=== PATIENT | female | born 1985 | race Caucasian/White ===

== ENCOUNTER 2019-10-27 11:08 | Emergency (ER) | payer OTHER ==
[2019-10-27 11:13] VITALS: BP 105/61; PULSE 58; TEMP 97; BMI 25.6
[2019-10-27] MEDS ORDERED: SODIUM CHLORIDE 0.9% 500 ML INFUS.BAG IV ONE (11:49)
[2019-10-27] MEDS ORDERED: METOCLOPRAMIDE HCL INJECTION 10 MG/2 ML VIAL IVPUSH ONE (11:49)
[2019-10-27] MEDS ORDERED: METOCLOPRAMIDE HCL INJECTION 10 MG/2 ML VIAL ONE (11:59)
[2019-10-27] MEDS ORDERED: KETOROLAC TROMETHAMINE 30 MG/1 ML VIAL IVPUSH ONE (12:34)
[2019-10-27] MEDS ORDERED: KETOROLAC TROMETHAMINE 30 MG/1 ML VIAL ONE (12:38)
--- NOTE | 2019-10-27 12:39 | PDOC ---
History of Present Illness - General Chief Complaint: Headache Stated Complaint: HEADACHE Time Seen by Provider: 10/27/19 11:27 History Source: Patient Exam Limitations: No Limitations - History of Present Illness Initial Comments: 10/27/19 12:34 34-year-old Georgian-speaking female history of migraine headaches complains of constant frontal headache radiating to left ear x 4 days with nausea, left lateral neck pain and general weakness. Denies trauma, fever, chills, vomiting, diarrhea, chest pain, shortness of breath, abdominal pain, urinary complaints, known sick contacts, recent travel, rash or any other symptoms. Patient took acetaminophen 1 g at approximately 7 AM this morning with no improvement. Reports normal head CT 2 years ago. Does not take anticoagulants. ROS: as above PE: GENERAL: well-appearing, NAD HEAD: NCAT EYES: pupils equal, round and reactive to light, sclera anicteric, conjunctiva clear ENT: Normal bilateral ear canals and TMs, pharynx: no erythema, no exudate, uvula midline NECK: supple, no lymphadenopathy, left lateral neck tenderness to palpation CHEST: nontender RESP: clear, no w/r/r CARDIO: rrr, no m/g/r ABD: +BS, soft, nontender, non distended BACK: no midline spinal ttp, no CVAT EXTREMITIES: Normal range of motion, no edema NEUROLOGICAL: Normal speech, normal gait SKIN: Warm, Dry 10/27/19 12:38 Is this a multiple visit Asthma Patient?: No Past History - Medical History Allergies/Adverse Reactions: Allergies Allergy/AdvReac Type Severity Reaction Status Date / Time No Known Allergies Allergy Verified 10/27/19 11:13 COPD: No - Psycho-Social/Smoking History Smoking History: Never smoked - Substance Abuse Hx (Audit-C & DAST Scrn) How often the patient has a drink containing alcohol: Never Score: In Men: 4 or > Positive; In Women: 3 or > Positive: 0 Screen Result (Pos requires Nsg. Audit-10AR): Negative *Physical Exam - Vital Signs Last Vital Signs Temp Pulse Resp BP Pulse Ox 97 F L 58 L 18 105/61 98 10/27/19 11:10 10/27/19 11:10 10/27/19 11:10 10/27/19 11:10 10/27/19 11:10 ED Treatment Course - LABORATORY CBC & Chemistry Diagram: 10/27/19 12:15 10/27/19 12:15 - RADIOLOGY Radiology Studies Ordered: Category Date Time Status HEAD CT WITHOUT CONTRAST [CT] Stat CT Scan 10/27/19 11:55 Completed - Medications Given in the ED: ED Medications Discontinued Medications Generic Name Dose Route Start Last Admin Trade Name Maxim PRN Reason Stop Dose Admin Metoclopramide HCl 10 mg 10/27/19 11:49 10/27/19 12:21 Reglan Injection - IVPUSH 10/27/19 11:50 10 mg ONCE ONE Administration Sodium Chloride 1,000 ml 10/27/19 11:49 10/27/19 12:21 Normal Saline - IV 10/27/19 11:50 1,000 ml ONCE ONE Administration Medical Decision Making - Medical Decision Making 10/27/19 12:38 34-year-old Georgian-speaking female history of migraine headaches complains of constant frontal headache radiating to left ear x 4 days with nausea, left lateral neck pain and general weakness. Denies trauma, fever, chills, vomiting, diarrhea, chest pain, shortness of breath, abdominal pain, urinary complaints, known sick contacts, recent travel, rash or any other symptoms. Patient took acetaminophen 1 g at approximately 7 AM this morning with no improvement. Reports normal head CT 2 years ago. Does not take anticoagulants. CBC, CMP IV fluids, IV Reglan Head CT: Unremarkable Ordered Toradol 30 mg IV Reassess 10/27/19 13:[address] and lab results reviewed with patient Patient feels better after IV fluids, Reglan and Toradol She will follow-up with a PMD and ENT Return precautions discussed Discharge - Discharge Information Problems reviewed: Yes Clinical Impression/Diagnosis: Headache Qualifiers: Headache type: unspecified Headache chronicity pattern: unspecified pattern Intractability: not intractable Qualified Code(s): R51 - Headache Condition: Stable Disposition: HOME - Admission No - Follow up/Referral Referrals: Rocio Stringer [Primary Care Provider] - Cristo Buckley MD [Staff Physician] - - Patient Discharge Instructions Additional Instructions: Alternate between acetaminophen 975mg and ibuprofen 600 mg every 6 hours as needed for pain Follow-up with your doctor and ENT Return to ED if fever, worsening headache, vomiting or any concerning symptoms - Post Discharge Activity
[2019-10-27 13:04] LABS: EOS % 0.4 % (0-4.5); HEMATOCRIT 41.8 % (32.4-45.2); HEMOGLOBIN 14.1 GM/dL (10.7-15.3); LYMPH % 30.1 % (8-40); MCHC 33.6 g/dl (32.0-36.0); MEAN CELL VOLUME 89.1 fl (80-96); MEAN PLT VOLUME 8.8 fl (7.5-11.1); MONO % 3.9 % (3.8-10.2); NEUT % 64.6 % (42.8-82.8); PLATELET COUNT 234 K/MM3 (134-434); RBC 4.69 M/mm3 (3.60-5.2); RDW 13.1 % (11.6-15.6); WHITE BLOOD COUNT 4.9 K/mm3 (4.0-10.0)
[2019-10-27 13:28] LABS: ALBUMIN 4.3 g/dl (3.4-5.0); BILIRUBIN,TOTAL 0.4 mg/dL (0.2-1); BLOOD UREA NITROGEN 9.4 mg/dL (7-18); CREATININE 0.6 mg/dL (0.55-1.3); POTASSIUM 4.2 mmol/L (3.5-5.1); TOT PROT 7.7 g/dl (6.4-8.2)
== END 2019-10-27 13:58 | disposition home or self-care (01) ==
LOC: JERFT 11:08
PROC: 3E0333Z Introduction of Anti-inflammatory into Peripheral Vein, Percutaneous Approach (ICD-10-PCS; principal; 2019-10-27)
PROC: 3E033GC Introduction of Other Therapeutic Substance into Peripheral Vein, Percutaneous Approach (ICD-10-PCS; 2019-10-27)
DX: R51 Headache (principal)
CPT/HCPCS: 36415; 70450-TC; 80053; 85025; 99284-25